=== PATIENT | male | born 1980 | race Caucasian/White ===

== ENCOUNTER 2017-11-21 00:59 | Emergency (ER) | payer BC, OTHER ==
--- NOTE | 2017-11-21 01:26 | EDM.PDOC ---
ED HPI GENERAL MEDICAL PROBLEM - General Chief Complaint: Upper Extremity Injury/Pain Stated Complaint: Left 5th finger crush injury Time Seen by Provider: 11/21/17 01:20 Source of Information: Reports: Patient, Old Records ([facility] EMR. No paper hospital chart available.) History Limitations: Reports: No Limitations - History of Present Illness INITIAL COMMENTS - FREE TEXT/NARRATIVE: The patient was brought to the emergency room via basic ambulance transfer for evaluation of a Workmen's Compensation injury, which occurred at about 00:05 hours this morning. Patient caught his fingers between a jig and a hydraulic press when a coworker accidentally hit the wrong lever. His last tetanus booster was confirmed to be given on 11/06/11 by the emergency room nurse today. He is left-handed and denies any previous injury to this extremity. The patient was wearing a glove at that time, however no known history of foreign body. He does complain of 7/10 throbbing pain at the laceration sites with some paresthesias in this area. There is no history of other injury, neurological deficits, etc.. The patient denies any chest pain/pressure, heart flutter, dizziness, orthostasis, orthopnea, diaphoresis, paresthesias, recent decreased exercise tolerance, or any other anginal-type symptoms. No recent history of abdominal pain, heartburn, nausea, diarrhea, melena, gross hematochezia, or any food intolerance, including fatty foods, etc.. The patient also denies any recent fever, cough, wheezing, dyspnea, etc.. Onset: Today Onset Date: 11/21/17 Onset Time: 00:05 Duration: Constant Location: Reports: Upper Extremity, Left. Denies: Head, Face, Neck, Chest, Abdomen, Back, Pelvis, Upper Extremity, Right, Lower Extremity, Left, Radiates to Quality: Reports: Same as Previous Episode, Throbbing Severity: Moderate Improves with: Reports: Rest Worsens with: Reports: Movement Context: Reports: Trauma (As above) Associated Symptoms: Denies: Confusion, Chest Pain, Cough, Diaphoresis, Fever/ Chills, Nausea/Vomiting, Shortness of Breath, Syncope, Weakness Treatments SHOE STITCHER: Reports: Cold Therapy, Dressing(s) Left 5-Little finger Pain Score (Numeric/FACES): 7 - Related Data Allergies Allergy/AdvReac Type Severity Reaction Status Date / Time codeine Allergy Dizziness Verified 11/21/17 01:03 Home Meds: Home Meds Albuterol [Ventolin HFA] 2 puff INH Q4H PRN 11/21/17 [History] Clindamycin HCl 150 mg PO QID #40 capsule 11/21/17 [Rx] Past Medical History Respiratory History: Reports: Asthma, Bronchitis, Recurrent, Other (See Below) Other Respiratory History: Exercise-induced asthma Genitourinary History: Reports: Renal Calculus, Other (See Below) Other Genitourinary History: Left-sided urolithiasis in his early 20s with spontaneous passage Musculoskeletal History: Reports: None. Denies: Amputation, Arthritis, Back Pain, Chronic, Fracture, Gout, Neck Pain, Chronic, Osteoarthritis, RA, SLE Endocrine/Metabolic History: Reports: Obesity/BMI 30+ Social & Family History - Tobacco Use Smoking Status *Q: Never Smoker Tobacco Use Within Last Twelve Months: No Used Tobacco, but Quit: No Smoking Cessation Information Provided To Patient: No Second Hand Smoke Exposure: Yes Source of Second Hand Smoke Exposure: Mother smokes outside Second Hand Smoke Education Provided: Yes - Living Situation & Occupation Living situation: Reports: (12/21/15, 1 daughter), with Family (His mother and stepfather live with him) Occupation: Employed ([employer]) Review of Systems - Review of Systems Review Of Systems: ROS reveals no pertinent complaints other than HPI. ED EXAM, GENERAL - Physical Exam Exam: See Below Exam Limited By: No Limitations General Appearance: Alert, WD/WN, No Apparent Distress Head: Atraumatic, Normocephalic. No: Facial Swelling, Facial Tenderness, Sinus Tenderness Neck: Normal Inspection, Supple, Non-Tender, Full Range of Motion. No: Lymphadenopathy (L), Lymphadenopathy (R), Thyromegaly Respiratory/Chest: No Respiratory Distress, Lungs Clear, Normal Breath Sounds, No Accessory Muscle Use, Chest Non-Tender. No: Pleural Rub, Retractions Cardiovascular: Normal Peripheral Pulses, Regular Rate, Rhythm, No Edema, No Gallop, No JVD, No Murmur, No Rub. No: Gallop/S3, Gallop/S4, Friction Rub Peripheral Pulses: 2+: Radial (L), Radial (R) GI/Abdominal: Normal Bowel Sounds, Soft, Non-Tender, No Organomegaly, No Distention, No Abnormal Bruit, No Mass, Other (obese). No: Guarding (Male) Exam: Deferred Rectal (Males) Exam: Deferred Back Exam: Normal Inspection, Full Range of Motion. No: CVA Tenderness (L), CVA Tenderness (R) Extremities: No Pedal Edema, Normal Capillary Refill, Limited Range of Motion ( Mild decreased range of motion of the distal phalanx of digit #5 of the left hand with partial amputation, including irregular 4 cm in diameter deep laceration and deformity and crepitation noted of the distal phalanx just above the DIP. No foreign body noted. Additional 1 cm in length superficial laceration of the palmar surface of distal aspect of the middle phalanx of digit number 4 of the same hand with no foreign body, deformity, or need for laceration repair. Adequate capillary fill with no subungual hematoma, etc. of digit #5.) Neurological: Alert, Oriented, CN II-XII Intact, Normal Cognition, Normal Gait, No Motor/Sensory Deficits Psychiatric: Normal Affect, Normal Mood Skin Exam: Ecchymosis (Mild at the laceration site), Tattoo(s), Wound/Incision ( As above). No: Diaphoretic, Lymphangitis Lymphatic: No Adenopathy ED TRAUMA EXTREMITY PROCEDURES - Laceration/Wound Repair Left Distal Finger Lac/Wound Length In cm: 4.0 Appearance: Subcutaneous, Muscle, Irregular, Mildly Contaminated Distal NVT: Neuro & Vascular Intact, Other (Possible flexor tendon partial or complete laceration with tendon fragments not visible) Local Anesthesia - Lidocaine (Xylocaine): 1% Plain Local Anesthetic Volume: Other (12 cc) Skin Prep: Providone-Iodine (Betadine) Saline Irrigation (cc's): 40 Exploration/Debridement/Repair: Wound Explored, In a Bloodless Field, Explored to Base, Moderate Debridement, No Foreign Material Found, Wound Margins Revised , Multiple Flaps Aligned Closed With: Sutures Suture Size: 4-0 # of Sutures: 12 Suture Type: Nylon, Interrupted, Simple Drain Placement: No Sterile Dressing Applied: Nurse Tetanus Status Addressed: Yes Complications: No - Joint Reduction Site: Finger (L) Sedation: Other (1% lidocaine local as per laceration repair as above) Local Anesthesia - Lidocaine (Xylocaine): 1% Plain Local Anesthetic Volume: Other (12 cc) Pre-Procedure NV Status: Normal Post-Procedure NV Status: Normal Technique: Traction/Counter Traction Number of Attempts: 1 Post-Reduction Imaging: Acceptably Reduced, Fracture Seen Joint Reduction Complications: No Joint Reduction Complication Description: Fracture fragment closed reduction repair with adequate reduction as per x-rays as below - Splinting Left 5th Digit Splint Site: Digit #5 of the left hand Pre-Procedure NV Status: Normal Post-Procedure NV Status: Normal Splint Material: Aluminum-Foam (3-hole padded flexor/extension finger splint) Splint Design: Other (As above) Applied & Form Fitted By: Nurse Provider Post-Splint Application NV Check: NV Status Normal, Good Position Complications: No Course - Vital Signs Text/Narrative:: Vital Signs - 24 hr 11/21/17 11/21/17 01:00 01:15 Temperature [ 36.6 C Temporal] Pulse, 78 81 Peripheral [ Right Pulse Oximetry] Respiratory 18 16 Rate Blood Pressure 134/82 133/70 [Right Upper Arm] O2 Sat by Pulse 99 100 Oximetry Last Recorded V/S: Last Vital Signs Temp 36.6 C 11/21/17 01:00 Pulse 81 11/21/17 01:15 Resp 16 11/21/17 01:15 BP 133/70 11/21/17 01:15 Pulse Ox 100 11/21/17 01:15 See paper ER record - Orders/Labs/Meds Orders: Active Orders 24 hr Category Date Time Status Vaccines to be Administered [RC] PER UNIT ROUTINE Care 11/21/17 01:28 Active Fingers Fifth Digit Lt F4 [CR] Stat Exams 11/21/17 01:52 Taken Hand 2V Lt [CR] Stat Exams 11/21/17 01:27 Taken Durable Medical Equipment for Discharge [DME for Oth 11/21/17 01:29 Ordered Discharge] [COMM] Routine Obtain Past Medical Record [OM.PC] Routine Oth 11/21/17 01:27 Active Labs: None Meds: Medications Discontinued Medications Generic Name Dose Route Start Last Admin Trade Name Freq PRN Reason Stop Dose Admin Clindamycin HCl 150 mg 11/21/17 01:49 Cleocin PO 11/21/17 01:50 ONETIME ONE Clindamycin HCl 150 mg 11/21/17 02:00 Cleocin .ROUTE 11/21/17 02:01 .STK-MED ONE Diphtheria/Tetanus/Acell Pertussis 0.5 ml 11/21/17 01:28 11/21/17 01:44 Adacel IM 11/21/17 01:29 0.5 ml .ONCE ONE Administration Lidocaine HCl 5 ml 11/21/17 01:27 11/21/17 01:45 Xylocaine-Mpf 1% INJECT 11/21/17 01:28 5 ml ONETIME ONE Administration Lidocaine HCl 5 ml 11/21/17 01:29 11/21/17 01:46 Xylocaine-Mpf 1% INJECT 11/21/17 01:30 5 ml ONETIME ONE Administration Lidocaine HCl 5 ml 11/21/17 02:00 Xylocaine-Mpf 1% .ROUTE 11/21/17 02:01 .STK-MED ONE Neomycin/Polymyxin/Bacitracin 1 each 11/21/17 01:27 11/21/17 01:45 Triple Antibiotic Oint TOP 11/21/17 01:28 Not Given ONETIME ONE - Radiology Interpretation Free Text/Narrative:: X-rays of the left hand, 3 views, shows evidence of a mildly angulated and moderately displaced fracture of the proximal aspect of the distal phalanx of digit #5 of the left hand with no foreign body noted. No evidence of other hand fracture, including of digit #4. X-rays of digit #5 of the left hand, 3 views, shows evidence of adequate fracture reduction with no significant angulation. Note that official x-ray reports received after the patient left the emergency room are in agreement with the above findings. Departure - Departure Time of Disposition: 03:00 Disposition: Home, Self-Care 01 Condition: Good Clinical Impression: Open fracture, Tobacco abuse counseling, Laceration Asthma Qualifiers: Asthma severity: mild Asthma persistence: intermittent Asthma complication type : uncomplicated Qualified Code(s): J45.20 - Mild intermittent asthma, uncomplicated - Discharge Information Prescriptions: Clindamycin HCl 150 mg PO QID #40 capsule Instructions: Finger Fracture, [id number], Laceration Care, Adult, Easy-to- Read, Stitches, Volcano, or Adhesive Wound Closure Referrals: Cinthia Reed MD [Primary Care Provider] - Forms: ED Department Discharge Additional Instructions: 1. Followup with your regular provider in 10 days as directed for reevaluation , suture removal, and possible further referral to a hand surgeon at that time depending on your clinical symptoms as discussed. 2. Work excuse- See Form 3. Activity restrictions as discussed including 10 pound lifting restriction and limited use of the left hand. 4. Finger splint is to be used at all times with exception of wound care and bathing 5. Antibacterial soap wash/soak with subsequent antibacterial dressing such as Neosporin, etc. as directed 2 times per day until the wound or laceration site completely heals. Keep the area clean and dry with activity restrictions as discussed. 6. Tylenol 650 mg by mouth every 4 hours and/or OTC ibuprofen 2-3 tabs by mouth every 6 hours with food as directed./needed. 7. Stop all tobacco exposure LINDA as directed with counselling, information, etc. given NOTE: Secondary to [employer] being down written discharge orders given at time of patient's discharge-see written copy - Problem List & Annotations (1) Laceration SNOMED Code(s): 147178921 Code(s): FXX0068 - Status: Acute Priority: High Onset Date: 11/21/17 Annotation/Comment:: Partial amputation of the distal aspect of digit #5 of the left hand as above with deep 4 cm irregular laceration. Various therapeutic options were discussed with the patient, who does not wish to have a referral to a hand surgeon at this time. He is aware that there may be a partial to complete laceration of his superficial flexor tendon in that digit, although overall adequate range of motion at this time. Excellent results with laceration repair as above with no direct evidence of significant vascular insufficiency. The patient is also aware that he may lose the nail on this digit. DTaP given secondary to dirty injury. Note that the nurse did soak and clean the laceration site with Betadine prior to my repeat disinfection and irrigation as above prior to laceration repair. [facility] work excuse and Workmen' s Compensation forms were completed. Patient was placed in a finger splint by the nurse as above. Activity restrictions, wound care, etc. discussed. Initial dose of clindamycin given in the emergency room secondary to open fracture. Close follow-up by his regular provider as per discharge instructions with possible referral to a hand surgeon at that time depending on his clinical course. Once again patient is not really interested in this at this time. Subsequent telephone consultation at 08:50 hours this morning with Abdon Shi, health safety manager at [facility], stressing the extent of patient's injury, treatment plan as above, work restrictions, etc. (2) Open fracture SNOMED Code(s): 240686679, 490051906 Code(s): T14.8XXA - OTHER INJURY OF UNSPECIFIED BODY REGION, INITIAL ENCOUNTER Status: Acute Priority: High Onset Date: 11/21/17 Annotation/ Comment:: Successful closed reduction of fracture fragments after laceration repair as above without complications (3) Asthma SNOMED Code(s): 512160890 Code(s): J45.909 - UNSPECIFIED ASTHMA, UNCOMPLICATED Status: Chronic Priority: Medium Annotation/Comment:: Stable by history with no recent fever or bronchitic type symptoms Qualifiers: Asthma severity: mild Asthma persistence: intermittent Asthma complication type: uncomplicated Qualified Code(s): J45.20 - Mild intermittent asthma, uncomplicated (4) Tobacco abuse counseling SNOMED Code(s): 529837125, 713525911, 340226745 Code(s): Z71.6 - TOBACCO ABUSE COUNSELING Status: Chronic Priority: Medium Annotation/Comment:: Stop all tobacco exposure LINDA as directed/per provided information and consider contacting Quit [employer]ne, etc.. - Problem List Review Problem List Initiated/Reviewed/Updated: Yes - My Orders Last 24 Hours: My Active Orders 11/21/17 01:27 Hand 2V Lt [CR] Stat Obtain Past Medical Record [OM.PC] Routine 11/21/17 01:28 Vaccines to be Administered [RC] PER UNIT ROUTINE 11/21/17 01:29 Durable Medical Equipment for Discharge [DME for Discharge] [COMM] Routine 11/21/17 01:52 Fingers Fifth Digit Lt F4 [CR] Stat - Assessment/Plan Last 24 Hours: My Active Orders 11/21/17 01:27 Hand 2V Lt [CR] Stat Obtain Past Medical Record [OM.PC] Routine 11/21/17 01:28 Vaccines to be Administered [RC] PER UNIT ROUTINE 11/21/17 01:29 Durable Medical Equipment for Discharge [DME for Discharge] [COMM] Routine 11/21/17 01:52 Fingers Fifth Digit Lt F4 [CR] Stat Assessment:: As above Plan: As above. Extensive precautions were given to the patient and his , who is in agreement with the treatment plan. See Patient Instructions for further treatment and plan.
[2017-11-21] MEDS ORDERED: Diphtheria,Pertussis(Acell),Tetanus Vaccine 0.5 ML SDV IM ONE (01:28)
[2017-11-21] MEDS: Bacitracin/Neomycin/Polymyxin B Oint 0.9 GM U/D Packet TOP ONE ×2 (01:44→01:45)
[2017-11-21] MEDS ORDERED: Clindamycin HCl 150 MG Cap PO ONE (01:49)
[2017-11-21] MEDS ORDERED: Clindamycin HCl 150 MG Cap ONE (02:00)
== END 2017-11-21 03:15 | disposition home or self-care (01) ==
LOC: LL.ED 00:59
DX: S62.637B Displaced fracture of distal phalanx of left little finger, initial encounter for open fracture (principal); Z71.6 Tobacco abuse counseling; J45.20 Mild intermittent asthma, uncomplicated; W23.0XXA Caught, crushed, jammed, or pinched between moving objects, initial encounter; Z23 Encounter for immunization
CPT/HCPCS: 12001; 12002; 26755; 73120-LT; 73140-F4; 90471; 90715; 99284; A9270-GY